=== PATIENT | female | born 1940 | race Caucasian/White ===

== ENCOUNTER 2017-04-18 13:04 | Outpatient (CLI) | payer MEDICARE, OTHER | END 2017-04-18 13:05 | disposition home or self-care (01) | LOC: BICMAMMO 13:04 | PROVIDERS: ATTEND Family Medicine | DX: Z12.31 Encounter for screening mammogram for malignant neoplasm of breast (principal); E03.9 Hypothyroidism, unspecified; Z85.3 Personal history of malignant neoplasm of breast | CPT/HCPCS: 77063; 77067 ==

== ENCOUNTER 2017-10-14 10:00 | Outpatient (CLI) | payer MEDICARE, OTHER ==
--- NOTE | 2017-10-14 11:08 | RAD ---
TWO VIEWS OF THE CHEST: COMPARISON: 09/06/16. HISTORY: Dyspnea. FINDINGS: Two views of the chest show normal sized cardiomediastinal silhouette. There is no evidence of consol idation, mass, or pleural effusion. The bones are unremarkable. IMPRESSION: No evidence of acute cardiopulmonary disease. POS: [facility]
== END 2017-10-14 10:01 | disposition home or self-care (01) ==
LOC: RAD 10:00
PROVIDERS: ATTEND Internal Medicine Critical Care Medicine
DX: R06.00 Dyspnea, unspecified (principal)
CPT/HCPCS: 71046

== ENCOUNTER 2018-04-20 09:54 | Outpatient (CLI) | payer MEDICARE, OTHER ==
--- NOTE | 2018-04-20 13:42 | MMO ---
Bilateral MAMMO Bilat Screen [facility]. CLINICAL HISTORY: Patient is 78 years old and is seen for screening. The patient has no family history of breast cancer. The patient has a history of malignant (generic) in the right breast at age 69. The patient has a history of right Lumpectomy at age 69 and right Excisional Biopsy at age 23 - benign. VIEWS: The views performed were: bilateral craniocaudal with tomosynthesis and bilateral mediolateral oblique with tomosynthesis. FILMS COMPARED: The present examination has been compared to prior imaging studies performed at [facility] on 04/18/2017, and at [facility] on 12/29/2012, 01/13/2014, 01/20/2015 and 01/22/2016. MAMMOGRAM FINDINGS: There are scattered fibroglandular densities. There are benign appearing calcifications seen in both breasts. There are no suspicious masses, calcifications or areas of architectural distortion. IMPRESSION: CALCIFICATIONS IN BOTH BREASTS ARE BENIGN. A ROUTINE FOLLOW-UP MAMMOGRAM IN 1 YEAR IS RECOMMENDED. THE RESULTS OF THIS EXAM WERE SENT TO THE PATIENT. ACR BI-RADS Category 2 - Benign finding MAMMOGRAPHY NOTE: 1. A negative mammogram report should not delay a biopsy if a dominant of clinically suspicious mass is present. 2. Approximately 10% to 15% of breast cancers are not detected by mammography. 3. Adenosis and dense breasts may obscure an underlying neoplasm.
== END 2018-04-20 09:55 | disposition home or self-care (01) ==
LOC: BICMAMMO 09:54
PROVIDERS: ATTEND Family Medicine
DX: Z12.31 Encounter for screening mammogram for malignant neoplasm of breast (principal); R92.1 Mammographic calcification found on diagnostic imaging of breast; Z85.3 Personal history of malignant neoplasm of breast; Z98.890 Other specified postprocedural states
CPT/HCPCS: 77063; 77067

== ENCOUNTER 2018-12-24 14:34 | Outpatient (CLI) | payer MEDICARE, OTHER ==
--- NOTE | 2018-12-24 15:32 | BD ---
DEXA BONE DENSITY: HISTORY: Postmenopausal female. Screening study. FINDINGS: Lumbar Spine: BMD (g/cm2) L1 0.718 T-Score: -2.5 -0.2 L2 0.761 T-Score: -2.4 0.1 L3 0.825 T-Score: -2.4 0.2 L4 0.917 T-Score: -1.3 1.4 L1-L4 0.813 T-Score: -2.1 0.4 Femoral Neck: 0.551 T-Score: -2.7 -0.5 Total Femur: 0.738 T-Score: -1.7 0.2 Impression: Lumbar spine: WHO classification osteopenia. Fracture risk is increased. Femoral neck: WHO classification osteoporosis. Ten-year fracture risk: FRAX not reported because some T-scores are at or below -2.0. POS: [facility]
== END 2018-12-24 14:35 | disposition home or self-care (01) ==
LOC: BICMAMMO 14:34
PROVIDERS: ATTEND Family Medicine
DX: Z13.820 Encounter for screening for osteoporosis (principal); E21.0 Primary hyperparathyroidism; M81.0 Age-related osteoporosis without current pathological fracture; M85.88 Other specified disorders of bone density and structure, other site
CPT/HCPCS: 77080